=== PATIENT | female | born 1990 | race Caucasian/White ===

== ENCOUNTER 2017-05-29 02:37 | Inpatient (IN) ==
[2017-05-29] MEDS ORDERED: HYDROmorphone 2 MG/1 ML VIAL IV STA (04:06)
[2017-05-29] MEDS ORDERED: ONDANSETRON 4 MG/2 ML VIAL IV STA (04:06)
[2017-05-29] MEDS ORDERED: ONDANSETRON 4 MG/2 ML VIAL ONE ×2 (04:08→15:08)
[2017-05-29] MEDS ORDERED: HYDROmorphone 2 MG/1 ML VIAL ONE ×2 (04:09→15:07)
[2017-05-29] MEDS ORDERED: MAGNESIUM HYDROXIDE SUSP 30 ML UDCUP PO PRN ×2 (04:14→15:14)
[2017-05-29] MEDS ORDERED: ONDANSETRON 4 MG/2 ML VIAL IV PRN ×3 (04:22→15:18)
[2017-05-29] MEDS ORDERED: LACTATED RINGERS 1,000 ML IV SCH (04:30)
[2017-05-29 04:54] LABS: Basophils % 0.4 % (0.0-0.8); Eosinophils % 0.4 % (0.00-10.9); Hematocrit 35.9 VOL% (35.7-47.0); Immature Granulocytes % 0.3 %; Immature Granulocytes Absolute 0.03 #; Lymphocytes # 3.3 10*3/uL (1.4-4.0); Lymphocytes % 29.2 % (21.3-54.2); Mean Corpuscular HGB Conc 30.6 GM/DL (32-36); Mean Corpuscular Hemoglobin 27 PG (27-34); Mean Corpuscular Volume 89.1 FL (87-102); Mean Platelet Volume 13.4 FL (9.6-12.0); Monocytes # 0.9 10*3/uL (0.11-0.8); Monocytes % 7.8 % (1.7-12.7); Neutrophils % 61.9 % (38.7-73.9); Platelet Count 219 T/CUMM (130-400); Red Blood Count 4.03 MC/CUMM (3.8-5.5); Red Cell Distribution Width 13.5 % (9.3-17.3); White Blood Count 11.3 T/CUMM (4-12)
[2017-05-29 05:04] LABS: PT Patient Result 10.2 SECS; Partial Thromboplastin Time 25.9 SECS (0-40)
[2017-05-29 05:30] LABS: Alanine Aminotransferase 44 U/L (13-56); Albumin 3.2 G/DL (3.4-5.0); Alkaline Phosphatase 83 U/L (45-117); Aspartate Amino Transferase 57 U/L (0-37); Bilirubin,Total < 0.39 MG/DL (0.2-1.0); Blood Urea Nitrogen 16 MG/DL (7-18); Calcium 8.6 MG/DL (8.5-10.1); Glucose 110 MG/DL (74-106); Potassium 4.1 MMOL/L (3.5-5.1); Sodium 143 MMOL/L (136-145); Total Protein 6.5 G/DL (6.4-8.3)
[2017-05-29] MEDS ORDERED: HYDROmorphone 2 MG/1 ML VIAL IV PRN ×3 (05:37→15:18)
[2017-05-29] MEDS ORDERED: ceFAZolin 2,000 MG in PREMIX 1 EACH IV ONE (10:00)
[2017-05-29] MEDS ORDERED: ROPIVACAINE 0.5% 30 ML VIAL ONE (12:06)
[2017-05-29] MEDS: LACTATED RINGERS 1,000 ML IV SCH ×3 (13:15→18:50)
[2017-05-29] MEDS ORDERED: SEVOFLURANE 1 UNIT/15 MINUTE INH ONE (15:07)
[2017-05-29] MEDS ORDERED: PROPOFOL 200 MG/20 ML VIAL IV ONE (15:07)
[2017-05-29] MEDS ORDERED: fentaNYL 100 MCG/2 ML VIAL ONE (15:08)
[2017-05-29] MEDS ORDERED: MIDAZOLAM 2 MG/2 ML VIAL ONE (15:08)
[2017-05-29] MEDS ORDERED: KETOROLAC 30 MG/1 ML VIAL ONE (15:08)
[2017-05-29] MEDS ORDERED: ACETAMINOPHEN 1,000 MG/100 ML VIAL IV ONE (15:08)
[2017-05-29] MEDS ORDERED: ROCURONIUM 100 MG/10 ML VIAL IV ONE (15:09)
[2017-05-29] MEDS ORDERED: SUCCINYLCHOLINE 200 MG/10 ML VIAL ONE (15:09)
[2017-05-29] MEDS ORDERED: PROMETHAZINE 25 MG/1 ML VIAL IM PRN (15:14)
[2017-05-29] MEDS ORDERED: KETOROLAC 15 MG/1 ML VIAL IV PRN (15:14)
[2017-05-29] MEDS: HYDROmorphone 2 MG/1 ML VIAL IV PRN ×2 (16:25→20:37)
[2017-05-30] MEDS: HYDROmorphone 2 MG/1 ML VIAL IV PRN
[2017-05-30] MEDS: LACTATED RINGERS 1,000 ML IV SCH ×2 (01:34→11:45)
[2017-05-30] MEDS ORDERED: ESCITALOPRAM 10 MG TABLET PO SCH (09:00)
[2017-05-30] MEDS ORDERED: LISINOPRIL 20 MG TABLET PO SCH (09:00)
[2017-05-30 16:49] VITALS: BP 130/65
== END 2017-05-30 16:50 | disposition home or self-care (01) | DRG 493 ==
LOC: EDBD → EDUNIT# → N.ED 02:37 → N.EDINP 04:15 → N.3E 04:38
PROVIDERS: ADMIT Orthopaedic Surgery; ATTEND Orthopaedic Surgery